=== PATIENT | male | born 1995 | race African-American/Black ===

== ENCOUNTER 2019-06-27 23:08 | Emergency (ER) | payer SELFPAY ==
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
--- NOTE | 2019-06-28 00:06 | RAD ---
XR Knee Lt 4 View STANDARD HISTORY: Knee injury. COMPARISON: None. FINDINGS: There are no signs of fracture, dislocation or joint effusion. IMPRESSION: Negative left knee.
== END 2019-06-28 00:25 | disposition home or self-care (01) ==
LOC: MADERS 23:08
DX: S80.02XA Contusion of left knee, initial encounter (principal); S37.92XA Contusion of unspecified urinary and pelvic organ, initial encounter; V43.52XA Car driver injured in collision with other type car in traffic accident, initial encounter
CPT/HCPCS: 72170